=== PATIENT | male | born 1975 | race Caucasian/White ===

== ENCOUNTER 2019-01-25 06:19 | Emergency (ER) | payer OTHER ==
[2019-01-25] MEDS ORDERED: Lidocaine 1% 20 ML MDV INJECT ONE (06:35)
[2019-01-25] MEDS ORDERED: Diphtheria,Pertussis(Acell),Tetanus Vaccine 0.5 ML Syringe IM ONE (06:36)
[2019-01-25] MEDS ORDERED: Bacitracin/Neomycin/Polymyxin B Oint 0.9 GM U/D Packet ONE (06:52)
[2019-01-25] MEDS ORDERED: Bacitracin/Neomycin/Polymyxin B Oint 28.4 GM Tube TOP ONE (07:06)
--- NOTE | 2019-01-25 07:17 | EDM.PDOC ---
ED HPI GENERAL MEDICAL PROBLEM - General Chief Complaint: Laceration Stated Complaint: R) ringfinger laceration Time Seen by Provider: 01/25/19 06:50 Source of Information: Reports: Patient History Limitations: Reports: No Limitations - History of Present Illness INITIAL COMMENTS - FREE TEXT/NARRATIVE: Jorge is a 43 yo male who presents to the ED with concerns of a cut to his ring finger on his right hand. States he caught it on a machine at work. Isn't sure how bad it is and admits it did bleed quite a bit. States it happened around 4am this morning. Tdap status unknown. - Related Data Allergies Allergy/AdvReac Type Severity Reaction Status Date / Time No Known Allergies Allergy Verified 01/25/19 06:21 Home Meds: Home Meds metFORMIN [Glucophage] 500 mg PO DAILY 01/25/19 [History] Past Medical History - Past Health History Medical/Surgical History: Denies Medical/Surgical History Endocrine/Metabolic History: Reports: Diabetes, Type II Social & Family History - Family History Family Medical History: Noncontributory - Tobacco Use Smoking Status *Q: Former Smoker Years of Tobacco use: 20 Packs/Tins Daily: 1 Used Tobacco, but Quit: No - Caffeine Use Caffeine Use: Reports: Coffee - Recreational Drug Use Recreational Drug Use: No ED ROS GENERAL - Review of Systems Review Of Systems: Comprehensive ROS is negative, except as noted in HPI. ED EXAM, SKIN/RASH Exam: See Below Exam Limited By: No Limitations General Appearance: Alert, No Apparent Distress Extremities: Normal Range of Motion, Other (Normal strength against resistance to ring finger. ) Skin: Mottled, Wound/Incision (2cm superficial right ring finger, palmar aspect , minimal bleeding noted. ) ED SKIN PROCEDURES - Laceration/Wound Repair Right Anterior Digit - 4th (Ring) Appearance: Subcutaneous, Linear, Clean Distal NVT: Neuro & Vascular Intact, No Tendon Injury Anesthetic Type: Local Local Anesthesia - Lidocaine (Xylocaine): 1% Plain Local Anesthetic Volume: 2cc Skin Prep: Chlorhexidine (Hibiciens) Exploration/Debridement/Repair: Wound Explored, In a Bloodless Field, Explored to Base, No Foreign Material Found Closed with: Sutures Lac/Wound length In cm: 2 Suture Size: 5-0 # of Sutures: 3 Suture Type: Prolene, Interrupted, Simple Sterile Dressing Applied: Nurse Tetanus Status Addressed: Yes Complications: No Course - Vital Signs Last Recorded V/S: Last Vital Signs Temp 97.6 F 01/25/19 06:25 Pulse 87 01/25/19 06:25 Resp 16 01/25/19 06:25 BP 143/65 H 01/25/19 06:25 Pulse Ox 97 01/25/19 06:25 - Orders/Labs/Meds Orders: Active Orders 24 hr Category Date Time Status Vaccines to be Administered [RC] PER UNIT ROUTINE Care 01/25/19 06:36 Active Meds: Medications Discontinued Medications Generic Name Dose Route Start Last Admin Trade Name Freq PRN Reason Stop Dose Admin Diphtheria/Tetanus/Acell Pertussis 0.5 ml 01/25/19 06:36 01/25/19 06:42 Adacel IM 01/25/19 06:37 0.5 ml .ONCE ONE Administration Lidocaine HCl 20 ml 01/25/19 06:35 01/25/19 07:05 Xylocaine 1% INJECT 01/25/19 06:36 20 ml ONETIME ONE Administration Neomycin/Polymyxin/Bacitracin 1 gm 01/25/19 07:06 Triple Antibiotic Oint TOP 01/25/19 07:07 ONETIME ONE Neomycin/Polymyxin/Bacitracin Confirm 01/25/19 06:52 Triple Antibiotic Oint Administered 01/25/19 06:53 Dose 1 each .ROUTE .STK-MED ONE Departure - Departure Time of Disposition: 07:14 Disposition: Home, Self-Care 01 Clinical Impression: Finger laceration Qualifiers: Encounter type: initial encounter Finger: ring finger Damage to nail status: without damage Foreign body presence: without foreign body Laterality: right Qualified Code(s): S61.214A - Laceration without foreign body of right ring finger without damage to nail, initial encounter - Discharge Information Instructions: Sutured Wound Care, [id number], Laceration Care, Adult, Easy-to -Read Forms: ED Department Discharge Additional Instructions: 1) Tdap given today, tetanus vaccine is up to date now 2) Keep wound clean and dry for 48 hours. Advise no soaking of finger 3) May take dressing off in 23-48 hours, then clean as discussed. May apply bandaid at that time. 4) Sutures out in 10 days 5) Watch for signs of infection; increased redness, swelling, discomfort, drainage, warmth, etc... If any signs recommend reevaluation 6) If any concerns at all, recommend reevaluation Sepsis Event Note - Evaluation Sepsis Screening Result: No Definite Risk - Focused Exam Vital Signs: Vital Signs Temp Pulse Resp BP Pulse Ox 01/25/19 06:25 97.6 F 87 16 143/65 H 97 Date Exam was Performed: 01/25/19 Time Exam was Performed: 07:11 - Problem List & Annotations (1) Finger laceration SNOMED Code(s): 551875112 Code(s): S61.219A - LACERATION W/O FB OF UNSP FINGER W/O DAMAGE TO NAIL, INIT Status: Acute Qualifiers: Encounter type: initial encounter Finger: ring finger Damage to nail status: without damage Foreign body presence: without foreign body Laterality: right Qualified Code(s): S61.214A - Laceration without foreign body of right ring finger without damage to nail, initial encounter - My Orders Last 24 Hours: My Active Orders 01/25/19 06:36 Vaccines to be Administered [RC] PER UNIT ROUTINE - Assessment/Plan Last 24 Hours: My Active Orders 01/25/19 06:36 Vaccines to be Administered [RC] PER UNIT ROUTINE Plan: Wound was fairly superficial. Finger has full flexion and extension. elected to close with sutures. No complications. See additional instructions.
== END 2019-01-25 07:26 | disposition home or self-care (01) ==
LOC: CC.ED 06:19
DX: S61.214A Laceration without foreign body of right ring finger without damage to nail, initial encounter (principal); E11.9 Type 2 diabetes mellitus without complications; Z79.84 Long term (current) use of oral hypoglycemic drugs; Z23 Encounter for immunization; Z87.891 Personal history of nicotine dependence; W31.9XXA Contact with unspecified machinery, initial encounter; Y92.89 Other specified places as the place of occurrence of the external cause; Y99.0 Civilian activity done for income or pay
CPT/HCPCS: 12001; 90471; 90715; 99282; J2001